=== PATIENT | male | born 1995 | race Caucasian/White ===

== ENCOUNTER → 2019-04-08 | Day surgery (SDC) | payer OTHER ==
[~2019-04-08] MED LIST: IV RINGERS,LACTATED 1000ML 1,000 ML IV SCH; LIDOCAINE 2% PF 5 ML VIAL. ONE; PROPOFOL 40 ML IV ONE
[2019-04-08 14:24] VITALS: BP 100/50
--- NOTE | 2019-04-09 14:06 | PATHOLOGY ---
[facility] Accession Number: [id number] . 01 Material submitted: . PART A: stomach - ANTRAL BIOPSY PART B: esophagus - DISTAL ESOPHAGUS. Modifiers: distal . 01 Clinical history: . Dysphagia. . 02 Diagnosis: A. Gastric biopsies, antrum: - Chronic gastritis, mild. . B. Esophageal biopsies, distal esophagus: - Esophagitis with eosinophils. See comment. . (JPM:mm; 04/09/2019) [facility]/04/09/2019 . 02 Comment: Sections of the gastric biopsy reveal segments of gastric body mucosa showing congestion and mild chronic inflammation. A properly-controlled immunoperoxidase stain for Helicobacter is negative for Helicobacter organisms. . Sections of the distal esophageal biopsy reveal segments of hyperplastic squamous esophageal mucosa. There are focally increased intraepithelial eosinophils. The differential diagnosis of esophagitis with eosinophils includes reflux esophagitis, "pill esophagitis" and eosinophilic esophagitis. There are focally greater than 30 intraepithelial eosinophils/HPF. This finding is supportive of the diagnosis of eosinophilic esophagitis. There is no evidence of Medeiros's change, dysplasia, or malignancy. . Special stain performed (A1): Immunoperoxidase stain for Helicobacter . (JPM:mm; 04/09/2019) . 02 Electronically signed: . Roly Wright MD, Pathologist NPI- [id number] . 01 Gross description: . A. Received in formalin labeled "Evan Bacon, antral BX" is a 0.6 x 0.5 x 0.1 cm aggregate of millard-brown mucosa fragments. The specimen is submitted in A1. . B. Received in formalin labeled "yman, Evan, distal esophagus BX" is a 1.5 x 0.3 x 0.1 cm aggregate of millard-brown mucosa fragments. The specimen is submitted in B1. ([facility] [place]; 04/08/2019) SYC/SYC . 02 Pathologist provided ICD-10: K29.50, K20.9 . 02 CPT . 119803, 024849, [id number] Specimen Comment: A courtesy copy of this report has been sent to Specimen Comment: [phone]. Specimen Comment: Report sent to [facility]formed at: 01 [facility] [address], [place] [id number] MD Gigi Berkowitz MD Phone: [phone] Performed at: 02 [facility] [address] [place], [place] [id number] MD Roly Wright MD Phone: [phone]
== END ==
LOC: ENDOS 11:12
PROVIDERS: ATTEND Internal Medicine Gastroenterology
DX: K29.50 Unspecified chronic gastritis without bleeding (principal); K22.2 Esophageal obstruction; K26.9 Duodenal ulcer, unspecified as acute or chronic, without hemorrhage or perforation; K21.0 Gastro-esophageal reflux disease with esophagitis; Z83.71 Family history of colonic polyps; Z82.49 Family history of ischemic heart disease and other diseases of the circulatory system
CPT/HCPCS: 43239; 43450; J2001; J2704; 88305; 88342